=== PATIENT | male | born 1960 | race Caucasian/White ===

== ENCOUNTER 2018-04-27 18:34 | Outpatient (REF) | payer OTHER, SELFPAY ==
[2018-04-27 21:14] LABS: Anion Gap 7.2 mmol/L (3-11); BUN 17 mg/dL (7-18); CO2 28.8 mmol/L (21.0-32.0); CREATININE 1.06 mg/dL (0.70-1.30); Calcium 8.1 mg/dL (8.5-10.1); Chloride 104 mmol/L (98-107); Cholesterol 179 mg/dL (50-200); Glucose 90 mg/dL (70-100); HDL Cholesterol 37 mg/dL (40-60); LDL CHOLESTEROL 121 mg/dL (<100); Sodium 140 mmol/L (136-145); TSH (W/Ref FT4) 4.17 uIU/mL (0.358-3.74); Triglyceride 158 mg/dL (30-150)
[2018-04-27 21:34] LABS: FREE T4 0.71 ng/dL (0.76-1.46)
[2018-04-29 11:56] LABS: PSA, Screening 3.2 ng/ml (0-3.5)
== END 2018-04-27 18:54 ==
LOC: NCHCN 18:34
PROVIDERS: PCP Specialist/Technologist Athletic Trainer; Visit Provider Specialist/Technologist Athletic Trainer
DX: Z00.00 Encounter for general adult medical examination without abnormal findings (principal); Z13.29 Encounter for screening for other suspected endocrine disorder; Z13.228 Encounter for screening for other metabolic disorders; Z13.220 Encounter for screening for lipoid disorders; Z12.5 Encounter for screening for malignant neoplasm of prostate
CPT/HCPCS: 80048; 80061; 83721; 84153; 84439; 84443

== ENCOUNTER 2018-10-29 09:21 | Outpatient (REF) | payer OTHER, SELFPAY ==
[2018-10-29 21:27] LABS: Anion Gap 11.4 mmol/L (3-11); BUN 22 mg/dL (7-18); CO2 26.6 mmol/L (21.0-32.0); CREATININE 1.12 mg/dL (0.70-1.30); Calcium 8.4 mg/dL (8.5-10.1); Chloride 101 mmol/L (98-107); Glucose 130 mg/dL (70-100); Potassium 3.4 mmol/L (3.5-5.1); Sodium 139 mmol/L (136-145); TSH (W/Ref FT4) 2.55 uIU/mL (0.358-3.74)
== END 2018-10-29 09:41 ==
LOC: NCHCN 09:21
PROVIDERS: PCP Specialist/Technologist Athletic Trainer; Visit Provider Specialist/Technologist Athletic Trainer
DX: E03.9 Hypothyroidism, unspecified (principal); I10 Essential (primary) hypertension
CPT/HCPCS: 80048; 80061; 83721; 84443

== ENCOUNTER 2019-02-02 19:32 | Outpatient (REF) | payer OTHER, SELFPAY ==
[2019-02-02 22:15] LABS: Anion Gap 9.5 mmol/L (3-11); BUN 18 mg/dL (7-18); CO2 28.5 mmol/L (21.0-32.0); CREATININE 1.13 mg/dL (0.70-1.30); Calcium 9.1 mg/dL (8.5-10.1); Chloride 104 mmol/L (98-107); Glucose 101 mg/dL (70-100); Potassium 3.6 mmol/L (3.5-5.1); Sodium 142 mmol/L (136-145)
[2019-02-05 09:04] LABS: PSA, Screening 3.5 ng/ml (0-3.5)
== END 2019-02-02 19:52 ==
LOC: NCHCN 19:32
PROVIDERS: PCP Specialist/Technologist Athletic Trainer; Visit Provider Nurse Practitioner Family
DX: I10 Essential (primary) hypertension (principal); Z12.5 Encounter for screening for malignant neoplasm of prostate
CPT/HCPCS: 80048; 84153; 84154

== ENCOUNTER 2019-06-07 08:53 | Outpatient (REF) | payer OTHER, SELFPAY ==
[2019-06-07 22:18] LABS: Anion Gap 10.1 mmol/L (3-11); BUN 16 mg/dL (7-18); CO2 27.9 mmol/L (21.0-32.0); CREATININE 1.08 mg/dL (0.70-1.30); Calcium 8.7 mg/dL (8.5-10.1); Calculated LDL 118 mg/dL; Chloride 104 mmol/L (98-107); Cholesterol 177 mg/dL (50-200); Glucose 100 mg/dL (70-100); HDL Cholesterol 35 mg/dL (40-60); Sodium 142 mmol/L (136-145); Triglyceride 121 mg/dL (30-150)
== END 2019-06-07 09:13 ==
LOC: NCHCN 08:53
PROVIDERS: PCP Nurse Practitioner Family; Visit Provider Nurse Practitioner Family
DX: I10 Essential (primary) hypertension (principal); E03.9 Hypothyroidism, unspecified; E66.9 Obesity, unspecified; Z00.00 Encounter for general adult medical examination without abnormal findings
CPT/HCPCS: 80048; 80061

== ENCOUNTER 2019-07-22 07:00 | Outpatient (RCR) | payer SELFPAY ==
--- NOTE | 2019-07-09 09:18 | PR3E_ITS ---
is a 58 year old male referred to our cardiac rehab maintenance program by his primary provider at [facility]. PMH: Sleep apnea w/ CPAP compliance, HTN, hypothyroid, right knee arthroscopy Cardiac risk factors: +Male, +Family history, +HTN, +obesity, +remote history of smoking/tobacco use, sedentary job/lifestyle, sleep apnea Patient came to cardiac rehab for his first day of exercise on 07/08/19 and intake. Presented with his . Completed all intake assessments and signed consents. Questions and concerns were answered and addressed. Lengthy discussion regarding regular exercise in addition to our program. Medications: Tamsulosim, Losartan, Levothyroxine, Hctz, Ibuprofen First day of exercise: Rest: HR 67, BP 143/90, weight 364 lbs, BMI 52.2 Treadmill (10 minutes), NuStep (5 minutes) and UBE (7 minutes). BP w/ exercise: 146-180/79-88, HR 76-82 bpm NINA Scale: 9-12 Patient tolerated exercise without any adverse signs or symptoms. Will continue to monitor BP trends and assist with exercise progress (duration and intensity) as tolerated.
== END 2019-07-27 23:59 | disposition home or self-care (01) ==
LOC: CR 07:00
PROVIDERS: PCP Nurse Practitioner Family; Visit Provider Family Medicine
DX: Z51.89 Encounter for other specified aftercare (principal)

== ENCOUNTER 2019-08-26 07:00 | Outpatient (RCR) | payer SELFPAY | END 2019-08-27 23:59 | disposition home or self-care (01) | LOC: CR 07:00 | PROVIDERS: PCP Nurse Practitioner Family; Visit Provider Family Medicine | DX: Z51.89 Encounter for other specified aftercare (principal) ==

== ENCOUNTER 2019-09-23 07:00 | Outpatient (RCR) | payer SELFPAY | END 2019-09-25 23:59 | disposition home or self-care (01) | LOC: CR 07:00 | PROVIDERS: PCP Nurse Practitioner Family; Visit Provider Family Medicine | DX: Z51.89 Encounter for other specified aftercare (principal) ==

== ENCOUNTER 2019-09-26 03:48 | Outpatient (RCR) | payer SELFPAY | END 2019-10-26 23:59 | disposition home or self-care (01) | LOC: CR 03:48 | PROVIDERS: PCP Nurse Practitioner Family; Visit Provider Family Medicine | DX: Z51.89 Encounter for other specified aftercare (principal) ==

== ENCOUNTER 2019-11-24 09:50 | Outpatient (REF) | payer OTHER, SELFPAY ==
[2019-11-24 19:36] LABS: Anion Gap 9.4 mmol/L (3-11); BUN 16 mg/dL (7-18); CO2 27.6 mmol/L (21.0-32.0); CREATININE 1.13 mg/dL (0.70-1.30); Calcium 8.6 mg/dL (8.5-10.1); Chloride 103 mmol/L (98-107); Glucose 95 mg/dL (74-106); Potassium 3.6 mmol/L (3.5-5.1); Sodium 140 mmol/L (136-145); TSH (W/Ref FT4) 2.21 uIU/mL (0.36-3.74)
== END 2019-11-24 10:10 ==
LOC: NCHCN 09:50
PROVIDERS: PCP Nurse Practitioner Family; Visit Provider Nurse Practitioner Family
DX: E03.9 Hypothyroidism, unspecified (principal); I10 Essential (primary) hypertension
CPT/HCPCS: 80048; 84443

== ENCOUNTER 2020-02-22 19:56 | Outpatient (REF) | payer BC, SELFPAY ==
[2020-02-23 17:41] LABS: PSA, Diagnostic 3.8 ng/mL (0.0-4.5)
== END 2020-02-22 20:16 ==
LOC: LBN 19:56
PROVIDERS: PCP Nurse Practitioner Family; Visit Provider Urology
DX: R39.9 Unspecified symptoms and signs involving the genitourinary system (principal); Z80.42 Family history of malignant neoplasm of prostate
CPT/HCPCS: 84153

== ENCOUNTER 2020-11-10 15:15 | Outpatient (REF) | payer SELFPAY ==
[2020-11-10 15:24] LABS: Bilirubin Negative (Negative); Blood Small (Negative); Clarity Clear (Clear); Glucose Negative (Negative); Ketones Negative (Negative); Leukocyte Esterase Moderate (Negative); Nitrite Positive (Negative); pH 5.5 (5-8)
[2020-11-10 15:35] LABS: Bacteria Many HPF (Negative); C & S Indicated? Yes; Casts Negative LPF (Negative); Crystals Negative HPF (Negative); Epithelial Cells Few HPF (Negative); Mucus Moderate (Negative); Other Cells Negative (Negative); WBC >50 HPF (0-5)
== END 2020-11-10 15:16 | disposition home or self-care (01) ==
LOC: NCHCN 15:15
PROVIDERS: PCP Nurse Practitioner Family; Visit Provider Family Medicine
DX: R39.9 Unspecified symptoms and signs involving the genitourinary system (principal)
CPT/HCPCS: 87077; 81003; 81015; 87086; 87186

== ENCOUNTER 2020-11-30 16:53 | Outpatient (REF) | payer BC, SELFPAY | END 2020-11-30 16:54 | disposition home or self-care (01) | LOC: NCHCN 16:53 | PROVIDERS: PCP Nurse Practitioner Family; Visit Provider Nurse Practitioner Family | DX: N39.0 Urinary tract infection, site not specified (principal); R39.89 Other symptoms and signs involving the genitourinary system | CPT/HCPCS: 87077; 87086; 87186 ==

== ENCOUNTER 2020-12-10 22:09 | Emergency (ER) | payer BC, SELFPAY ==
[2020-12-10 22:19] VITALS: BP 122/58; PULSE 67; RESP 16; TEMP 36.7; O2SAT 98
[2020-12-10 22:29] LABS: Bilirubin Negative (Negative); Blood Large (Negative); Clarity Sl Cloudy (Clear); Glucose Negative (Negative); Ketones Negative (Negative); Leukocyte Esterase Large (Negative); Nitrite Negative (Negative); Specific Gravity >= 1.030 (1.005-1.025); Urobilinogen 0.2 EU/dL (Up TO 0.2); pH 6.5 (5-8)
--- NOTE | 2020-12-10 22:36 | W.ED.GENAD ---
Discharge Plan Disposition Patient Disposition: HOME Condition: Stable Discharge Details Clinical Impression: Cystitis Primary Care Provider: Denise Andrade ED Provider: Dave Packer Home Meds and New Rx's Prescriptions: New ciprofloxacin HCl 500 mg tablet 500 mg PO BID Qty: 14 RF: 0 ciprofloxacin HCl 500 mg tablet 500 mg PO BID Qty: 28 RF: 0 Continued mometasone [Nasonex] 50 mcg/actuation spray,non-aerosol 2 spray DAVONTE DAILY RF: 0 levothyroxine 50 mcg capsule 50 mcg PO DAILY RF: 0 hydrochlorothiazide 25 mg tablet 25 mg PO DAILY RF: 0 losartan 25 MG tablet 50 mg PO DAILY RF: 0 tamsulosin [Flomax] 0.4 mg capsule 0.8 mg PO DAILY Qty: 180 RF: 4 acetaminophen [Mapap Extra Strength] 500 MG tablet 1,000 mg PO TID Qty: 180 RF: 0 ibuprofen 600 MG tablet 600 mg PO BID RF: 0 albuterol sulfate [Ventolin HFA] 200 PUFF HFA aerosol inhaler 2 puff Inhalation Q4H PRN PRNQty: 1 RF: 0 Discharge Instructions Additional Instructions: I placed you on our follow up list to try and see Dr. Smith sooner Take the medicine as prescribed if you develop severe pain, fevers, persistent vomit or feel more ill return to the emergency department Medical Decision Making 60 yo male with hx of htn comes in with burning with urination starting earlier today. He saw his pcp for similar symptoms earlier this month and diagnosed with a uti and was placed on 7 days of macrobid, and his urine culture did grow newman sensitive e coli. He states he felt better, finished the antibiotics 2 days ago and symptoms returned. He denies back pain, abdomen pain, fevers, chills. He has no abodmen tenderness or cva tenderness. He was able to urinate and had 100cc of urine in his bladder on bladder scan. Suspect recurrent uti vs prostatitis. He has seen Dr. Smith in the past and sees him yearly for lower urinary tract symptoms, and has follow up in the next month or two will see if this can be expedited. Will obtian ua. Has no findings on history or exam and appears well systemically so doubt sepsis or pyelo. UA consistent with recurrent uti, given recurrent symptoms so quick will treat with cipro for longer course and placed on follow up list to see urology sooner for recurrent uti by mistake sent 14 total tabs of cipro and meant to sent 28 tabs. Will have tech tomorrow call pharmacy to fill only the 28 total tab prescription Differential Diagnosis Differential Diagnosis: cystitis, prostatitis HPI General Mode of arrival: ambulatory. Date/Time Provider Initiated Documentation: 12/10/20 22:13. Limitations to Documentation: no limitations. Information obtained by: patient. History of Present Illness 60 year old M presents to the emergency department with the chief complaint of burning with urination, described as moderate, Patient started experiencing this hour(s) (6) and it has been intermittent. No relieving factors improve symptom(s), No exacerbating factors reported . Patient notes no other symptoms.. Related Data Home Medications Medication Instructions Recorded Confirmed losartan 50 mg PO DAILY tab-cap 07/12/15 12/10/20 acetaminophen [Mapap Extra 1,000 mg PO TID #180 tab 08/17/15 12/10/20 Strength] albuterol sulfate [Ventolin HFA] 2 puff INHALATION Q4H PRN PRN #1 10/24/17 12/10/20 inh ibuprofen 600 mg PO BID 10/24/17 12/10/20 hydrochlorothiazide 25 mg tablet 25 mg PO DAILY 02/19/19 12/10/20 levothyroxine 50 mcg capsule 50 mcg PO DAILY 02/19/19 12/10/20 mometasone 50 mcg/actuation nasal 2 spray DAVONTE DAILY 02/19/19 12/10/20 spray tamsulosin 0.4 mg capsule 0.8 mg PO DAILY #180 cap 02/29/20 12/10/20 ciprofloxacin HCl 500 mg PO BID #14 tab 12/10/20 ciprofloxacin HCl 500 mg PO BID #28 tab 12/10/20 Previous Rx's Medication Instructions Recorded acetaminophen [Mapap Extra 1,000 mg PO TID #180 tab 08/17/15 Strength] albuterol sulfate [Ventolin HFA] 2 puff INHALATION Q4H PRN PRN #1 10/24/17 inh tamsulosin 0.4 mg capsule 0.8 mg PO DAILY #180 cap 02/29/20 ciprofloxacin HCl 500 mg PO BID #14 tab 12/10/20 ciprofloxacin HCl 500 mg PO BID #28 tab 12/10/20 Allergies Allergy/AdvReac Type Severity Reaction Status Date / Time lisinopril Allergy cough Verified 12/10/20 22:35 doxycycline AdvReac Nausea Unverified 12/10/20 22:35 General Stated Complaint: Urinary MORENA: 3 Review of Systems All systems reviewed & are unremarkable except as noted in HPI and below Constitutional Constitutional: Denies chills, Denies fever(s) and Denies weakness Cardiovascular Cardiovascular: Denies chest pain and Denies dyspnea Respiratory Respiratory: Denies cough and Denies dyspnea Gastrointestinal Gastrointestinal: Denies abdominal pain, Denies nausea and Denies vomiting Musculoskeletal Musculoskeletal: Denies joint swelling Neurologic Neurologic: Denies weakness [facility] Medical History (Updated 12/10/20 @ 23:00 by Dave Packer MD) Family history of prostate cancer in father Lower urinary tract symptoms (LUTS) Social History Smoking/Tobacco Use Status: Never Smoking risk assessment performed?: Yes Drug use: Never Do you feel safe in your relationship?: Yes Exam Const General: no acute distress Orientation: alert HENMT Head: normal to inspection Ears: external ears normal General nose exam: external nose normal Mouth: moist mucous membranes Eyes General: appearance normal, both eyes and all related structures Neck Neck: normal visual inspection Resp Effort & Inspection: normal respiratory effort and able to speak in complete sentences Cardio Rate: regular rate GI Palpation: soft and nontender General: No CVA tenderness Skin General skin exam: no rashes or lesions noted Neuro General: patient alert and patient oriented x3 Extrem General: normal to inspection Psych Mental Status: mental status grossly normal Course Vital Signs Vital signs: Vital Signs Temperature 36.7 C 12/10/20 22:19 Pulse 67 12/10/20 22:19 Respiratory Rate 16 12/10/20 22:19 Blood Pressure 122/58 L 12/10/20 22:19 Pulse Oximetry 98 12/10/20 22:19 Temperature 36.7 C 12/10/20 22:19 Temperature Source Temporal Artery Scan 12/10/20 22:19 Pulse 67 12/10/20 22:19 Respiratory Rate 16 12/10/20 22:19 Respiratory Effort 12/10/20 22:33 Blood Pressure 122/58 L 12/10/20 22:19 Blood Pressure Position Supine 12/10/20 22:19 Pulse Oximetry 98 12/10/20 22:19 Oxygen Delivery Method Room Air 12/10/20 22:19 Oxygen Flow Rate 0 12/10/20 22:19
[2020-12-10 22:40] LABS: RBC >50 HPF (0-2); WBC >50 HPF (0-5)
[2020-12-10 22:41] LABS: C & S Indicated? Yes
[2020-12-10] MEDS: Ciprofloxacin 500 MG TAB PO (23:07)
== END 2020-12-10 23:25 | disposition home or self-care (01) ==
PROVIDERS: Emergency Provider Emergency Medicine; PCP Nurse Practitioner Family
DX: N30.00 Acute cystitis without hematuria (principal); Z87.440 Personal history of urinary (tract) infections
CPT/HCPCS: 87077; 99283; 81003; 81015; 87086; 87186

== ENCOUNTER 2021-02-12 18:08 | Outpatient (REF) | payer BC, SELFPAY ==
[2021-02-12 22:35] LABS: PSA, Screening 5.5 ng/mL (0.0-4.5)
== END 2021-02-12 18:09 | disposition home or self-care (01) ==
LOC: LBN 18:08
PROVIDERS: PCP Nurse Practitioner Family; Visit Provider Nurse Practitioner Gerontology
DX: Z12.5 Encounter for screening for malignant neoplasm of prostate (principal); Z80.42 Family history of malignant neoplasm of prostate
CPT/HCPCS: 84153

== ENCOUNTER 2021-05-14 22:43 | Outpatient (REF) | payer BC, SELFPAY ==
[2021-05-14 20:34] LABS: Anion Gap 8.8 mmol/L (3-11); BUN 15 mg/dL (7-18); CO2 29.2 mmol/L (21.0-32.0); CREATININE 1.2 mg/dL (0.70-1.30); Calcium 8.7 mg/dL (8.5-10.1); Chloride 104 mmol/L (98-107); FREE T4 0.85 ng/dL (0.76-1.46); Glucose 113 mg/dL (74-106); Potassium 3.5 mmol/L (3.5-5.1); Sodium 142 mmol/L (136-145); TSH 2.04 uIU/mL (0.36-3.74)
== END 2021-05-14 22:44 | disposition home or self-care (01) ==
LOC: NCHCN 22:43
PROVIDERS: PCP Nurse Practitioner Family; Visit Provider Nurse Practitioner Family
DX: E03.9 Hypothyroidism, unspecified (principal); I10 Essential (primary) hypertension; R39.89 Other symptoms and signs involving the genitourinary system; N41.8 Other inflammatory diseases of prostate; Z12.5 Encounter for screening for malignant neoplasm of prostate
CPT/HCPCS: 80048; 84153; 84439; 84443

== ENCOUNTER 2021-09-05 14:39 | Outpatient (REF) | payer SELFPAY ==
[2021-09-05 22:33] LABS: PSA, Diagnostic 7.4 ng/mL (0.0-4.5)
== END 2021-09-05 14:40 | disposition home or self-care (01) ==
LOC: LBN 14:39
PROVIDERS: PCP Nurse Practitioner Family; Visit Provider Nurse Practitioner Gerontology
DX: N40.1 Benign prostatic hyperplasia with lower urinary tract symptoms (principal); R97.20 Elevated prostate specific antigen [PSA]; Z80.42 Family history of malignant neoplasm of prostate
CPT/HCPCS: 84153

== ENCOUNTER 2022-02-12 18:18 | Outpatient (REF) | payer BC, SELFPAY ==
[2022-02-12 23:01] LABS: PSA, Diagnostic 4.5 ng/mL (<=4.5)
== END 2022-02-12 18:19 | disposition home or self-care (01) ==
LOC: NCHCN 18:18
PROVIDERS: PCP Nurse Practitioner Family; Visit Provider Nurse Practitioner Family
DX: R97.20 Elevated prostate specific antigen [PSA] (principal)
CPT/HCPCS: 84153

== ENCOUNTER 2022-05-01 15:54 | Outpatient (REF) | payer BC, SELFPAY ==
[2022-05-01 15:48] LABS: Anion Gap 10.2 mmol/L (3-11); BUN 18 mg/dL (7-18); CO2 27.8 mmol/L (21.0-32.0); Calcium 8.8 mg/dL (8.5-10.1); Calculated LDL 113 mg/dL (<100); Chloride 106 mmol/L (98-107); Cholesterol 171 mg/dL (<200); Glucose 103 mg/dL (74-106); HDL Cholesterol 40 mg/dL (40-60); Potassium 3.7 mmol/L (3.5-5.1); Sodium 144 mmol/L (136-145); TSH 1.93 uIU/mL (0.36-3.74); Triglyceride 91 mg/dL (<150)
[2022-05-01 17:48] LABS: FREE T4 0.88 ng/dL (0.76-1.46)
== END 2022-05-01 15:55 | disposition home or self-care (01) ==
LOC: NCHCN 15:54
PROVIDERS: PCP Nurse Practitioner Family; Visit Provider Nurse Practitioner Family
DX: Z00.00 Encounter for general adult medical examination without abnormal findings (principal); I10 Essential (primary) hypertension; E03.9 Hypothyroidism, unspecified
CPT/HCPCS: 80048; 80061; 84439; 84443

== ENCOUNTER 2023-04-30 08:24 | Outpatient (REF) | payer BC, SELFPAY ==
[2023-04-30 16:33] LABS: Anion Gap 10.1 mmol/L (3-11); BUN 17 mg/dL (7-18); CO2 25.9 mmol/L (21.0-32.0); CREATININE 1.1 mg/dL (0.70-1.30); Calcium 8.8 mg/dL (8.5-10.1); Calculated LDL 112 mg/dL (<100); Chloride 102 mmol/L (98-107); Cholesterol 173 mg/dL (<200); Estimated GFR 75.43 (mL/min/1.73m2); Glucose 104 mg/dL (74-106); HDL Cholesterol 39 mg/dL (40-60); Potassium 3.6 mmol/L (3.5-5.1); Sodium 138 mmol/L (136-145); TSH 2.24 uIU/mL (0.36-3.74); Triglyceride 111 mg/dL (<150)
[2023-04-30 17:00] LABS: FREE T4 0.86 ng/dL (0.76-1.46)
[2023-04-30 23:30] LABS: PSA, Screening 4.3 ng/mL (<=4.5)
== END 2023-04-30 08:25 | disposition home or self-care (01) ==
LOC: NCHCN 08:24
PROVIDERS: Nurse Practitioner Gerontology; PCP Nurse Practitioner Family; Visit Provider Nurse Practitioner Family
DX: R39.9 Unspecified symptoms and signs involving the genitourinary system (principal); R97.20 Elevated prostate specific antigen [PSA]; Z80.42 Family history of malignant neoplasm of prostate; E03.9 Hypothyroidism, unspecified; I10 Essential (primary) hypertension; Z00.00 Encounter for general adult medical examination without abnormal findings; Z12.5 Encounter for screening for malignant neoplasm of prostate
CPT/HCPCS: 80048; 80061; 84153; 84439; 84443

== ENCOUNTER 2023-11-06 08:44 | Outpatient (REF) | payer BC, SELFPAY | END 2023-11-06 08:45 | disposition home or self-care (01) | LOC: NCHCN 08:44 | PROVIDERS: PCP Nurse Practitioner Family; Visit Provider Nurse Practitioner Family | DX: R97.20 Elevated prostate specific antigen [PSA] (principal) | CPT/HCPCS: 84153 ==

== ENCOUNTER 2023-11-27 14:49 | Outpatient (REF) | payer BC, SELFPAY ==
[2023-11-27 22:30] LABS: PSA, Diagnostic 5.5 ng/mL (<=4.5)
== END 2023-11-27 14:50 | disposition home or self-care (01) ==
LOC: NCHCN 14:49
PROVIDERS: PCP Nurse Practitioner Family; Visit Provider Nurse Practitioner Family
DX: R97.20 Elevated prostate specific antigen [PSA] (principal)
CPT/HCPCS: 84153

== ENCOUNTER 2024-01-09 09:20 | Outpatient (CLI) | payer BC, SELFPAY ==
--- NOTE | 2024-01-09 08:15 | DI.RAD_ITS ---
Exam(s) XR KNEE LT 3V AP,LAT,MANDY EXAM: XR KNEE LT 3V AP,LAT,MANDY CLINICAL HISTORY: L knee pain. TECHNIQUE: 2D digital imaging was performed. COMPARISON: CR RIGHT KNEE LIMITED 1 OR 2 VIEW from 09/19/2017 FINDINGS: No evidence of acute fracture. There does appear to be a small joint effusion and there is a 5 johnnie meter soft tissue calcification which appears to be in the superior aspect of the suprapatellar bursa . There is [id number] narrowing of the medial compartment. Minimal narrowing of the lateral compartm ent. There is an element of medial subluxation of the femoral condyles on the tibial plateau, simila r to 2018. There are degenerative subarticular cysts evident in the tibial plateau. There are also significant degenerative changes in the patellofemoral compartment. IMPRESSION: Advanced degenerative changes, most prominent in the medial compartment with mild further progression when compared to 2018. DATA REPOSITORY: RADIATION DOSE DELIVERED:
== END 2024-01-09 09:21 | disposition home or self-care (01) ==
LOC: DIORS 09:29
PROVIDERS: PCP Physician Assistant Medical; Visit Provider Physician Assistant
DX: M17.12 Unilateral primary osteoarthritis, left knee (principal)
CPT/HCPCS: 73562

== ENCOUNTER 2024-01-28 15:08 | Outpatient (CLI) | payer BC, SELFPAY ==
--- NOTE | 2024-01-28 15:00 | DI.RAD_ITS ---
Exam(s) XR SHOULDER LT COMPLETE 2+V EXAM: XR SHOULDER LT COMPLETE 2+V CLINICAL HISTORY: LEFT SHOULDER PAIN. TECHNIQUE: 2D digital imaging was performed of the left shoulder. Two images were obtained. Grashe y and axillary views were obtained. COMPARISON: No exams were available for comparison FINDINGS: BONES: No acute fracture is present. No bony destructive lesion is seen. JOINTS: No dislocation present. There is marked narrowing of the glenohumeral joint with [id number] . There is an osteophyte at the inferior aspect of the humeral head. The acromioclavicular joint is well maintained. SOFT TISSUE: Normal. IMPRESSION: Marked degenerative changes seen at the glenohumeral joint. DATA REPOSITORY: RADIATION DOSE DELIVERED:
== END 2024-01-28 15:09 | disposition home or self-care (01) ==
LOC: DIORS 15:09
PROVIDERS: PCP Physician Assistant Medical; Referring Provider Physician Assistant Medical; Visit Provider Student in an Organized Health Care Education/Training Program
DX: M25.512 Pain in left shoulder (principal)
CPT/HCPCS: 73030

== ENCOUNTER 2024-05-10 08:41 | Outpatient (REF) | payer BC, SELFPAY ==
[2024-05-10 17:33] LABS: ALT 36 U/L (16-63); AST 18 U/L (15-37); Albumin 3.5 g/dL (3.4-5.0); Alkaline Phosphatase 74 U/L (46-116); Anion Gap 9.3 mmol/L (3-11); BUN 22 mg/dL (7-18); Bilirubin, Total 0.58 mg/dL (0.2-1.0); CO2 26.7 mmol/L (21.0-32.0); CREATININE 1.1 mg/dL (0.70-1.30); Calcium 8.7 mg/dL (8.5-10.1); Chloride 106 mmol/L (98-107); Estimated GFR 74.96 (mL/min/1.73m2); Glucose 107 mg/dL (74-106); Potassium 3.7 mmol/L (3.5-5.1); Sodium 142 mmol/L (136-145); Total Protein 6.5 g/dL (6.4-8.2)
[2024-05-10 18:19] LABS: Calculated LDL 109 mg/dL (<100); Cholesterol 175 mg/dL (<200); HDL Cholesterol 38 mg/dL (40-60); Triglyceride 144 mg/dL (<150)
[2024-05-10 18:43] LABS: Hemoglobin A1C 5.4 % (<5.7)
== END 2024-05-10 08:42 | disposition home or self-care (01) ==
LOC: NCHCN 08:41
PROVIDERS: PCP Physician Assistant Medical; Visit Provider Physician Assistant Medical
DX: I10 Essential (primary) hypertension (principal); E03.9 Hypothyroidism, unspecified; E66.9 Obesity, unspecified
CPT/HCPCS: 80053; 80061; 83036; 84443

== ENCOUNTER 2024-08-16 11:43 | Outpatient (REF) | payer OTHER, SELFPAY ==
[2024-08-16 22:10] LABS: PSA, Diagnostic 5.7 ng/mL (<=4.5)
== END 2024-08-16 11:44 | disposition home or self-care (01) ==
LOC: NCHCN 11:43
PROVIDERS: Nurse Practitioner Gerontology; PCP Physician Assistant Medical; Visit Provider Physician Assistant Medical
DX: R97.20 Elevated prostate specific antigen [PSA] (principal); Z80.42 Family history of malignant neoplasm of prostate; R39.9 Unspecified symptoms and signs involving the genitourinary system
CPT/HCPCS: 84153

== ENCOUNTER 2024-09-08 01:38 | Outpatient (CLI) | payer OTHER, SELFPAY ==
--- NOTE | 2024-09-08 07:00 | DI.RAD_ITS ---
Exam(s) RF JOINT INJ. FLUORO GUID RAD EXAM: RF JOINT INJ. FLUORO GUID RAD. LEFT SHOULDER GLENOHUMERAL JOINT STEROID INJECTION CLINICAL HISTORY: L SHOULDER PAIN,arthritis lt glenohumeral joint,m19.012,fluoro. TECHNIQUE: Fluoroscopic procedure CONTRAST MATERIAL: Intra-articular Omnipaque 300 COMPARISON: Prior plain films reviewed FINDINGS: This left glenohumeral joint steroid injection was performed at the request of the referring orthoped ic surgeon. Patient was consented by myself prior to this procedure. Patient was placed in the supine position on the fluoroscopy table. Using sterile technique and adequate skin-subcutaneous anesthesia, fluoroscopic guidance was used to advance a 22 gauge spinal needle into the glenohumeral joint via an anterior approach. Intra-articul ar position was confirmed with injection of Omnipaque 300. Thereafter a sterile solution of 40 johnnie gram Depo-Medrol and 4 mL bupivacaine 0.5 percent was injected into the glenohumeral joint space. Intra-articular needle was removed. Patient tolerated this procedure well and there were no intraprocedural complications. IMPRESSION: Successful left shoulder glenohumeral joint steroid injection. RADIATION DOSE DELIVERED: Ka,r=11.8mGy
[2024-09-08] MEDS: methylPREDNISolone ACETATE 40 MG/ML VIAL IM (12:19)
[2024-09-08] MEDS: Bupivacaine 0.5% Pres-Free 10 ML VIAL 7 ML IJ (12:20)
[2024-09-08] MEDS: Omnipaque 300 MG/ML 10 ML BTL IJ (12:22)
[2024-09-08] MEDS: Lidocaine 1% Pres-Free 30 ML VIAL IJ (12:30)
== END 2024-09-08 01:58 ==
PROVIDERS: PCP Physician Assistant Medical; Visit Provider Student in an Organized Health Care Education/Training Program
DX: M19.012 Primary osteoarthritis, left shoulder (principal)
CPT/HCPCS: 20610; 77002; J0665; J1010

== ENCOUNTER 2025-02-22 12:00 | Outpatient (REF) | payer OTHER, SELFPAY ==
[2025-02-22 16:38] LABS: Calculated LDL 115 mg/dL (<100); Cholesterol 178 mg/dL (<200); HDL Cholesterol 40 mg/dL (>or=40); TSH (W/Ref FT4) 1.23 uIU/mL (0.36-3.74); Triglyceride 117 mg/dL (<150)
[2025-02-22 22:33] LABS: PSA, Diagnostic 5.4 ng/mL (<=4.5)
== END 2025-02-22 12:01 | disposition home or self-care (01) ==
LOC: NCHCN 12:00
PROVIDERS: PCP Physician Assistant Medical; Visit Provider Physician Assistant Medical
DX: E03.9 Hypothyroidism, unspecified (principal); R97.20 Elevated prostate specific antigen [PSA]; E78.5 Hyperlipidemia, unspecified
CPT/HCPCS: 80061; 84153; 84443

== ENCOUNTER 2025-06-23 06:24 | Emergency (ER) | payer OTHER, SELFPAY ==
[2025-06-23 06:28] VITALS: BP 162/98; PULSE 100; RESP 18; TEMP 36.6; O2SAT 94
--- NOTE | 2025-06-23 06:29 | ED.GENADUL_ITS ---
Discharge Plan Disposition Patient Disposition: Home Condition: Good Discharge Details Clinical Impression: Encounter for postoperative wound check Primary Care Provider: Jessica Singletary ED Provider: Garrett Pulido [place] Meds and New Rx's Prescriptions: Continued levothyroxine 50 mcg capsule 50 mcg PO DAILY hydrochlorothiazide 25 mg tablet 25 mg PO DAILY ascorbic acid (vitamin C) 500 mg capsule 500 mg PO DAILY triamcinolone acetonide [Nasacort] 55 mcg aerosol,spray 1 spray intranasal DAILY PRN Rx Instructions: administer into each nostril tadalafil [Cialis] 5 mg tablet 5 mg PO DAILY Qty: 90 3RF tamsulosin [Flomax] 0.4 mg capsule 0.4 mg PO DAILY Qty: 90 4RF losartan 25 mg tablet 25 mg PO DAILY acetaminophen [Mapap Extra Strength] 500 MG tablet 1,000 mg PO TID Qty: 180 0RF ibuprofen 600 MG tablet 600 mg PO BID naproxen 500 mg tablet,delayed release (DR/EC) PO oxycodone 5 mg tablet Zepbound 5 mg/0.5 mL pen injector SUBCUT Patient Comments: INJECT 5MG SUBCUTANEOUSLY ONCE WEEKLY Discharge Instructions Additional Instructions: You were seen for a wound check postoperatively after noticing bleeding from the incision site. There is no active bleeding at this time. Incision appears to be intact. X-rays do not suggest any hardware failure or acute changes. Resume postoperative discharge instructions and medications. Follow-up with orthopedics as schedulred. Return to ED for fever, persistent bleeding, severe worsening pain, numbness or weakness distally. Stand Alone Forms: Portal Information HPI General Mode of arrival: ambulatory . Date/Time Provider Initiated Documentation: 06/23/25 06:29 . Limitations to Documentation: no limitations . Information obtained by: patient, RN notes reviewed and old records reviewed . HPI Narrative: Patient presents to ED with bleeding from his surgical site after left shoulder replacement done yesterday at [facility]. Patient had no issues since discharge. The nerve block is still working and he has no pain in the shoulder. He woke up earlier in the morning and was going to go to the bathroom. [place] like he was going to fall out of bed which reflexively made him use his left arm to grab for something. He thinks this is what started to bleeding. He was in his immobilizer. Sensation and strength in his hand is normal. He did not take the dressing down but because of the bleeding came to the ED for evaluation. Related Data Home Medications ?Medication ?Instructions ?Recorded ?Confirmed acetaminophen 500 mg tablet (Mapap 1,000 mg (2 x 500 m g) PO TID #180 08/17/15 06/23/25 Extra Strength) tabs ibuprofen 600 mg tablet 600 mg PO BID 10/24/1706/23 hydrochlorothiazide 25 mg tablet 25 mg PO DAILY 06/23/25 levothyroxine 50 mcg capsule 50 mcg PO DAILY 02/19/19 06/23/25 losartan 25 mg tablet 25 mg PO DAILY 01/28/2405/29 ascorbic acid (vitamin C) 500 mg 500 mg PO DAILY 02/2306/23/25 capsule tadalafil 5 mg tablet (Cialis) 5 mg PO DAILY #90 tabs 02/23/25 06/23/25 tamsulosin 0.4 mg capsule (Flomax) 0.4 mg PO DAILY #90 caps 02/23/25 06/23/25 triamcinolone acetonide 55 mcg 1 spray intranasal JAMAL Y PRN 02/23/25 06/23/25 nasal spray aerosol (Nasacort) naproxen 500 mg tablet,delayed mg PO 06/23/25 release oxycodone 5 mg tablet mg 06/23/25 tirzepatide (weight loss) 5 mg/0.5 mg subcut 06/23/25 mL subcutaneous pen injector (Zepbound) Previous Rx's ?Medication ?Instructions ?Recorded acetaminophen 500 mg tablet (Mapap 1,000 mg (2 x 500 m g) PO TID #180 08/17/15 Extra Strength) tabs tadalafil 5 mg tablet (Cialis) 5 mg PO DAILY #90 tabs 02/23/25 tamsulosin 0.4 mg capsule (Flomax) 0.4 mg PO DAILY #90 caps 02/23/25 Allergies Allergy/AdvReac Type Severity Reaction Status Date / Time lisinopril Allergy cough Verified 02/23/25 08:18 doxycycline AdvReac Nausea Unverified 02/23/25 08:18 General MORENA: 3 Exam Narrative Exam Narrative: Const: Obese male in NAD. VS per triage. HEENT: NC/AT. Normal facial exam. Neck: Supple. Trachea midline. Lungs: Normal respiratory effort. Cor: RRR. Good radial pulses. Neuro: A+O x 3. Normal speech, mentation, gait. Cranial nerves II - XII grossly intact. Ext: Left shoulder with anterior incision that is not currently bleeding. No significant bruising noted. Good radial pulse and normal hand sensation/strength. No sensation in proximal LUE due to nerve block. Shoulder not ranged as early post operative at this point. Medical Decision Making Patient presents due to bleeding. The incision is intact and was closed with subcuticular sutures per the op note. Steri strips cover the incision but there is no active bleeding once dressing was taken down. While I doubt any injury to the shoulder itself, he is still blocked and does describe reflexively trying to catch himself to prevent falling out of bed. He was wearing his immobilizer so I doubt there was much movement but obtaining a quick x-ray seems prudent to be sure hardware is intact. Will have nursing redress his wound. X-ray of the left shoulder shows no evidence of hardware failure or fracture. Wound has been redressed. Patient to resume previous post op instructions and follow up with ortho as scheduled. Return precautions provided. Medical Records Medical records reviewed: Yes I reviewed the patient's medical records. Medical records narrative: [facility] Op Note Imaging Data Radiologic Study: Attestation: I personally reviewed and interpreted this imaging study as follows: Imaging: X-Ray My impression: see [facility] All Active Problems (Updated 06/23/25 @ 07:25 by Garrett Pulido MD) Encounter for postoperative wound check (Acute) Arthritis of left glenohumeral joint (Chronic) Intra-articular Depo-Medrol injection: 06/11/24; 02/20/2024 Elevated PSA (Acute) FRANCISCO (obstructive sleep apnea) (Chronic) Osteoarthritis of left knee (Acute) Steroid Injection: 01/09/24; 12/09/2022; 06/29/2021 Obesity (Chronic) Hypertension (Chronic) Hypothyroidism (Chronic) Cystitis (Acute) Family history of prostate cancer in father (Acute) Lower urinary tract symptoms (LUTS) (Acute) Medical History (Updated 06/23/25 @ 07:25 by Garrett Pulido MD) Gout Surgical History (Updated 06/29/21 @ 11:16 by MAMIE Taylor) History of total right knee replacement (TKR) (08/15/15) Social History Smoking/Tobacco Use Status: Never Smoking risk assessment performed?: Yes Alcohol Intake: never Drug use: Never Substance use type: does not use Do you feel safe in your relationship?: Yes
--- NOTE | 2025-06-23 07:12 | DI.RAD_ITS ---
Exam(s) XR SHOULDER LT COMPLETE 2+V EXAM: XR SHOULDER LT COMPLETE 2+V CLINICAL HISTORY: replacement yesterday; fell and tried to catch bryan. TECHNIQUE: 2D digital imaging was performed of the left shoulder. Three images were obtained. AP, Grashey and Y views were obtained. COMPARISON: CR XR SHOULDER LT COMPLETE 2+V from 01/28/2024 RF RF JOINT INJ. FLUORO GUID RAD from 09/08/2024 FINDINGS: BONES: No acute fracture is present. No bony destructive lesion is seen. JOINTS: There has been interval placement of a left total reverse shoulder arthroplasty. The orthopedic hardware appears in good position. There is lucency around the superior screw of the metaglene. The screw appears intact. SOFT TISSUE: Postsurgical changes are seen in the soft tissues. IMPRESSION: 1. Status post left reverse total shoulder arthroplasty. 2. Nonspecific lucency seen around the superior screw of the metaglene. The screw appears intact. 3. No definite fracture is seen on these images. 4. The preliminary [facility] report was reviewed. DATA REPOSITORY: RADIATION DOSE DELIVERED:
--- NOTE | 2025-06-23 08:14 | DI.[facility]_ITS ---
PROCEDURE INFORMATION: Exam: XR Left Shoulder Exam date and time: 06/23/2025 7:07 AM Age: 64 years old Clinical indication: Injury or trauma; Fall; Blunt trauma (contusions or hematomas); Injury date: 06/23/25; Injury details: Patient had complete shoulder replacement yesterday, fell early this morning and tried to catch himself. Prior surgery; Surgery date: Post-operative (0-2 days); Surgery type: Left total shoulder replacement TECHNIQUE: Imaging protocol: Radiologic exam of the left shoulder. Views: 2 or more views. COMPARISON: CR XR SHOULDER LT COMPLETE 2+V 01/28/2024 3:11 PM FINDINGS: Bones/joints: Total left shoulder arthroplasty changes. Nonspecific lucency along the upper screw of the glenoid prosthesis. Soft tissues: Scattered subcutaneous air within the soft tissues. IMPRESSION: 1. Total left shoulder arthroplasty changes. 2. Scattered subcutaneous air within the soft tissues. 3. Nonspecific lucency along the upper screw of the glenoid prosthesis, possibly artifactual. Dictated and Authenticated by: Marco A Doherty MD. Orderin Ashok Tucker MD
== END 2025-06-23 07:44 | disposition home or self-care (01) ==
PROVIDERS: Emergency Provider Emergency Medicine; PCP Physician Assistant Medical
DX: Z71.1 Person with feared health complaint in whom no diagnosis is made (principal)
CPT/HCPCS: 73030; 99281; 99282